=== PATIENT | male | born 2000 | race Two or more races ===

== ENCOUNTER 2025-01-30 22:11 | Emergency (ER) | payer OTHER, MEDICAID ==
[~2025-01-30] VITALS: Ht 170.2 cm; Wt 100.0 kg
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
[2025-01-30] MEDS: MORPHINE SULFATE INJ 2 MG/ml SYRG IM ONE (22:34)
[2025-01-30] MEDS: MORPHINE SULFATE 4 MG/ML SYR/VIAL ONE (22:36)
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
[2025-01-31] MEDS ORDERED: IBUP-1455 PO (00:12)
[2025-01-31] MEDS ORDERED: CYCL-837 PO (00:12)
[2025-01-31] MEDS: HYDROcodone-ACET 5/325MG TAB PO ONE (01:47)
[2025-01-31 02:50] VITALS: PULSE 102; RESP 16; TEMP 98.3; O2SAT 97
[2025-01-31 03:00] VITALS: BP 113/65; PULSE 102; RESP 16
== END 2025-01-31 03:04 | disposition home or self-care (01) ==
LOC: ER 22:11
DX: S22.42XA Multiple fractures of ribs, left side, initial encounter for closed fracture (principal); S82.892A Other fracture of left lower leg, initial encounter for closed fracture; S82.891A Other fracture of right lower leg, initial encounter for closed fracture; V89.2XXA Person injured in unspecified motor-vehicle accident, traffic, initial encounter; Y93.89 Activity, other specified; Y92.410 Unspecified street and highway as the place of occurrence of the external cause; Y99.8 Other external cause status
CPT/HCPCS: 70450; 71250; 72125; 73110; 73600; 74176; 96372; 99285; J2270